=== PATIENT | female | born 1980 | race Caucasian/White ===

== ENCOUNTER → 2019-11-23 11:10 | Outpatient (BNVA) | payer SELFPAY | PROVIDERS: Family Provider Nurse Practitioner Family; PCP Nurse Practitioner Family; Visit Provider Registered Nurse | DX: E11.9 Type 2 diabetes mellitus without complications (principal); I10 Essential (primary) hypertension | CPT/HCPCS: 80053; 80061; 83036 ==

== ENCOUNTER 2021-05-15 15:30 | Outpatient (CLI) | payer SELFPAY ==
--- NOTE | 2021-05-15 15:30 | CT_ITS ---
WS: [id number] CT ABDOMEN PELVIS TECHNIQUE: Noncontrast CT of the abdomen and pelvis with coronal and sagittal reformatted images. CLINICAL INFORMATION: K85.90 - Acute pancreatitis without necrosis or infection... COMPARISON: None. DLP: 1746.[address] scans at [facility] use at least one of these dose optimization techniques: automated e xposure control; mA and/or kV adjustment per patient size (includes targeted exams where dose is matc hed to clinical indication); or iterative reconstruction. FINDINGS: Normal noncontrast liver. Small right hepatic cyst. Normal gallbladder. Lung bases are well aerated. Normal noncontrast spleen. Normal GE junction. Noncontrast pancreas is normal. Adrenal glands are nor mal.No hydronephrosis in either kidney. No obstructing renal or ureteral calculi. Normal caliber abdo makenna aorta. Mild aortic calcification. Normal sigmoid colon. No evidence of small large bowel obstruction. Prior appendectomy. No periaortic or retroperitoneal lymphadenopathy. No pelvic lymphadenopathy. Tiny fat-containing umbilical hernia. CT/CT abdomen pelvis wo con [id number] IMPRESSION: 1. No obstructing renal or ureteral calculi. No hydronephrosis in either kidne y. 2. No free fluid in the abdomen or pelvis. 3. Noncontrast pancreas appears normal. No evidence of acute pancreatitis 4. Tiny right hepatic cyst. 5. No evidence of small or large bowel obstruction. 6. Prior appendectomy. 7. Small fat-containing umbilical hernia. 8. No other significant findings.
== END 2021-05-15 15:31 | disposition home or self-care (01) ==
LOC: RAD 15:34
PROVIDERS: PCP Registered Nurse; Visit Provider Registered Nurse
DX: K85.90 Acute pancreatitis without necrosis or infection, unspecified (principal); K42.9 Umbilical hernia without obstruction or gangrene; Q42.8 Congenital absence, atresia and stenosis of other parts of large intestine; K76.89 Other specified diseases of liver; E11.9 Type 2 diabetes mellitus without complications
CPT/HCPCS: 74176; 80053; 83036

== ENCOUNTER → 2022-08-02 11:24 | Outpatient (BNVA) | payer SELFPAY | PROVIDERS: PCP Registered Nurse; Visit Provider Registered Nurse | DX: E11.9 Type 2 diabetes mellitus without complications (principal); I10 Essential (primary) hypertension; J32.9 Chronic sinusitis, unspecified | CPT/HCPCS: 80053; 83036 ==

== ENCOUNTER → 2023-01-31 09:00 | Outpatient (BNVA) | payer SELFPAY | PROVIDERS: PCP Registered Nurse; Visit Provider Registered Nurse | DX: K85.90 Acute pancreatitis without necrosis or infection, unspecified (principal) | CPT/HCPCS: 83036 ==

== ENCOUNTER → 2023-06-26 11:01 | Outpatient (BNVA) | payer SELFPAY | PROVIDERS: PCP Registered Nurse; Visit Provider Registered Nurse | DX: E11.9 Type 2 diabetes mellitus without complications (principal) | CPT/HCPCS: 80053; 83036; 85025 ==

== ENCOUNTER → 2023-12-03 08:53 | Outpatient (BNVA) | payer SELFPAY | PROVIDERS: PCP Registered Nurse; Visit Provider Registered Nurse | DX: E11.9 Type 2 diabetes mellitus without complications (principal); K85.90 Acute pancreatitis without necrosis or infection, unspecified; I10 Essential (primary) hypertension; F41.1 Generalized anxiety disorder; F43.0 Acute stress reaction | CPT/HCPCS: 80053; 82306; 82607; 82977; 83036; 83090; 83525; 83540; 83615; 83735; 84100; 84439; 84443; 84481; 84482; 84550; 84630; 85025; 86141; 86376 ==

== ENCOUNTER → 2024-05-12 09:56 | Outpatient (BNVA) | payer OTHER, SELFPAY | PROVIDERS: PCP Registered Nurse; Visit Provider Registered Nurse | DX: E11.9 Type 2 diabetes mellitus without complications (principal); R51.9 Headache, unspecified; H47.10 Unspecified papilledema | CPT/HCPCS: 80053; 83036; 85025; 86140 ==

== ENCOUNTER 2024-05-19 07:57 | Outpatient (CLI) | payer OTHER, SELFPAY ==
--- NOTE | 2024-05-19 08:00 | MR_ITS ---
WS: [id number] MRI BRAIN WITHOUT CONTRAST HISTORY: H47.10 - Unspecified papilledema COMPARISON: None available. TECHNIQUE: Diffusion imaging, multiplanar T1, T2 and FLAIR imaging obtained. No evidence for acute infarct or hemorrhage. Nice-white matter differentiation is normal. No significant cerebral atrophy. No prior infarct. No significant small vessel disease. Ventricles and extra-axial spaces are normal. No inferior displacement of cerebellar tonsils. The sella turcica and pituitary gland are unremarkabl e. Dural venous sinuses and [place] of [place] demonstrate no abnormality on this unenhanced studies. Paranasal sinuses: Small air-fluid levels in the maxillary sinuses with mucoperiosteal thickening. Mastoid air cells: Normal. Calvarium and scalp: Intact. Symmetric appearance of the orbits and globes. No significant asymmetry of the optic nerves or sheath . No signal changes along the optic nerves or sheath. MR/MR head wo con* [id number] IMPRESSION: 1. Unremarkable noncontrast MRI brain. 2. No ischemia or prior infarcts. 3. Acute maxillary sinusitis. 4. By MRI brain the optic nerves and optic nerve sheaths appear symmetric. For more extensive evaluation of the optic nerves consider MRI orbit evaluation wi th and without contrast.
== END 2024-05-19 07:58 | disposition home or self-care (01) ==
LOC: RAD 07:58
PROVIDERS: PCP Registered Nurse; Visit Provider Registered Nurse
DX: H47.10 Unspecified papilledema (principal); R51.9 Headache, unspecified; J01.00 Acute maxillary sinusitis, unspecified
CPT/HCPCS: 70551

== ENCOUNTER 2024-06-03 10:57 | Day surgery (SDC) | payer OTHER, SELFPAY ==
[2024-06-03 11:07] VITALS: BP 165/97; PULSE 91; RESP 20; TEMP 36.8; O2SAT 98; BMI 29.8
[2024-06-03] MEDS: sodium chloride 0.9% 500 ML 15 ML IV (11:14)
[2024-06-03 11:20] LABS: Glucose Point of Care 168 mg/dL (70-110)
--- NOTE | 2024-06-03 12:22 | ANES.PREANE2 ---
Pre-Anesthetic Assessment Height/Weight: Height 1.68 m Weight 83.915 kg Temp Pulse Resp BP Pulse Ox O2 Del Method 98.3 F 91 20 H 165/97 98 Room Air 06/03/24 11:07 06/03/24 11:07 06/03/24 11:07 06/03/24 11:07 06/03/24 11:07 06/03/24 11:07 Preop Diagnosis: abdominal pain, GI bleed. Operation Date: 06/03/24 12:00 Proposed Procedures p EGD 64835, 59178, G0105, K92.2, R10.9(Not Applicable) - Santiago Lucero DO s Colonoscopy(Not Applicable) - Santiago Lucero DO Familial anesthetic complications: none Was Beta Jessica taken within 24 hours: N/A Last intake: Intake Last Liquid Date 06/02/24 Last Liquid Time 23:30 Last Solid Date 06/01/24 Last Solid Time 23:59 Social Alcohol (1-2 drinks per week) and Tobacco (vape hasnt in 5 days per patient) cannabis use prn for sleep 48 hours since last use. Exam alert, oriented x 3, clear to auscultation bilaterally and regular rate & rhythm Airway Submandibular: within normal limits Cervical ROM: within normal limits Mallampati: Class II Dentition: full Pulmonary Asthma CV/HEM Hypertension None reported Hepatic None reported GI Gastroesophageal Reflux Disease GI bleed + occult Metabolic Diabetes Mellitus and Hyperlipidemia A1C 7.1 [facility] None reported Neuropsych Anxiety Anesthetic Plan ASA status: 3 Anesthesia: MAC Medications/Allergies Home Medications Medication Instructions Recorded Confirmed Last Taken Type albuterol sulfate 90 mcg/actuation 1 inh inhalation Q6H 30 days #8.5 10/24/22 06/01/24 06/02/24 Rx aerosol inhaler (Ventolin HFA) grams dapagliflozin propanediol 10 mg 10 mg PO DAILY 90 days #90 tabs 11/29/23 06/01/24 06/02/24 Rx tablet (Farxiga) lorazepam 0.5 mg tablet 0.25 - 0.5 mg (0.5 - 1 x 0.5 mg) 11/29/23 06/01/24 06/02/24 Rx PO DAILY PRN anxiety 30 days #14 tabs losartan 25 mg tablet See Rx Instructions .Route 02/24/24 06/01/24 06/02/24 Rx .COMPLEX #180 tabs polyethylene glycol 3350 17 17 g PO DAILY 30 days #238 grams 05/25/24 06/01/24 06/02/24 Rx gram/dose oral powder (Miralax) Allergies Allergy/AdvReac Type Severity Reaction Status Date / Time codeine Allergy Mild unknown Verified 05/29/24 13:07 Current Medications Generic Name Dose Route Start Last Admin Trade Name Freq PRN Reason Stop Dose Admin Sodium Chloride 500 mls @ 15 mls/hr 06/03/24 11:01 06/03/24 11:14 Sodium Chloride 0.9% IV 06/04/24 11:00 15 mls/hr .Q24H PRN Administration COLONOSCOPY FLUIDS PFSH Anesthesia Medical History (Updated 06/01/24 @ 12:51 by INOCENCIA Lagunas) Diabetes mellitus Hypertension Surgical History (Updated 06/01/24 @ 15:11 by INOCENCIA Lagunas) History of hysterectomy 2014 @ [facility] Social History Smoking and tobacco/nicotine status: current every day tobacco/nicotine user e-cigarettes Alcohol intake: never Substance/Drug Use: never Adopted: No Caregiver/support person: No Lives independently: No Household members: spouse Marital status: Sexually active: Yes Do you think of yourself as: Straight/Heterosexual Current gender identity: Female Data Anesthesia Cardiac Studies: No Data to Display
--- NOTE | 2024-06-03 12:22 | W.PM.OPSUD ---
Surgery/Procedure H&P Update DATE OF PROCEDURE: June 03, 2024 DATE H&P PERFORMED: 05/25/24 H&P UPDATE INFORMATION: I have reviewed H&P completed within last 30 days, I have examined patient prior to procedure and No changes to prior documentation PLANNED PROCEDURE: Operation Date: 06/03/24 12:00 Proposed Procedures p EGD 03242, 85614, G0105, K92.2, R10.9(Not Applicable) - DO marques Hargrove Colonoscopy(Not Applicable) - Santiago Lucero DO
[2024-06-03] MEDS: EPINEPHrine 1 mg/mL INJ XX (12:40)
[2024-06-03 12:56] VITALS: BP 93/64; PULSE 76; RESP 14; TEMP 36.1; O2SAT 95
[2024-06-03 13:11] VITALS: BP 137/88; PULSE 81; RESP 16; O2SAT 99
[2024-06-03 14:00] VITALS: BP 129/88; PULSE 61; RESP 18; O2SAT 99
--- NOTE | 2024-06-03 14:00 | ANE.PACU2 ---
Inpatient post-anesthesia follow up: Airway intact: Yes Vital signs: Temperature 97.0 F Pulse Rate 61 Respiratory Rate 18 Blood Pressure 129/88 Pulse Oximetry 99 Oxygen Delivery Me thod Room Air Oxygen Flow Rate Fraction of Inspir ed Oxygen Hydration adequate: Yes Nausea and vomiting: No Pain level: 1 Mental status: Baseline
--- NOTE | 2024-06-03 14:13 | PC.NURSE ---
1352 - spoke with CASSANDRA Paula re: Patient c/o feeling bad - states I am sleepy and my belly hurts. V/S stable - HR 61, RR 18, BP 129/88, O2 Sat 99%. Nisa in to speak with patient.
--- NOTE | 2024-06-03 14:15 | PC.NURSE ---
1402 - Patient states she is ready to go home. Patient taken out via w/c accompanied by nurse and . All personal belongings sent with patient.
== END 2024-06-03 14:04 | disposition home or self-care (01) ==
PROVIDERS: PCP Registered Nurse; Visit Provider Surgery
PROC: 0DJ08ZZ Inspection of Upper Intestinal Tract, Via Natural or Artificial Opening Endoscopic (ICD-10-PCS; principal; 2024-06-03 12:00)
PROC: 0DJD8ZZ Inspection of Lower Intestinal Tract, Via Natural or Artificial Opening Endoscopic (ICD-10-PCS; CPT 45378; 2024-06-03 12:00)
DX: Z12.11 Encounter for screening for malignant neoplasm of colon (principal); K31.7 Polyp of stomach and duodenum; K29.50 Unspecified chronic gastritis without bleeding; B96.81 Helicobacter pylori [H. pylori] as the cause of diseases classified elsewhere; E11.9 Type 2 diabetes mellitus without complications; I10 Essential (primary) hypertension; F17.210 Nicotine dependence, cigarettes, uncomplicated; Z88.5 Allergy status to narcotic agent; Z79.899 Other long term (current) drug therapy
CPT/HCPCS: 36416; 43239; 43251; 45378; 82962; 88305; 88342; J0171; J2704; J7040

== ENCOUNTER → 2024-07-10 08:23 | Outpatient (BNVA) | payer OTHER, SELFPAY | PROVIDERS: PCP Registered Nurse; Visit Provider Surgery | DX: K29.70 Gastritis, unspecified, without bleeding (principal); B96.81 Helicobacter pylori [H. pylori] as the cause of diseases classified elsewhere; R10.9 Unspecified abdominal pain | CPT/HCPCS: 86003; 86008; 87338 ==

== ENCOUNTER 2024-08-12 08:38 | Outpatient (CLI) | payer OTHER, SELFPAY ==
--- NOTE | 2024-08-12 09:00 | FL_ITS ---
WS: [id number] Exam: FL barium swallow modifd [id number] Date/Time of Exam: 08/12/2024 9:00 AM Reason For Exam: Fluoroscopy time: 2min [id number] minutes # of spot films: 0 Modified barium swallow test performed in conjunction with the speech therapy service. Oropharyngeal phase of swallowing was normal. The patient tolerated all consistencies of barium mixture foodstuffs without penetration or aspiration. The patient swallowed a barium pill without difficulty. The tablet was momentarily retained in the lower esophagus but was propelled into the stomach with a single swallow of thin liquid barium. FL/FL barium swallow modifd [id number] IMPRESSION: 1. No aspiration or penetration identified. A separate report of findings and recommendations will follow from the speech t herapy service.
== END 2024-08-12 08:39 | disposition home or self-care (01) ==
LOC: RAD 08:41
PROVIDERS: PCP Registered Nurse; Visit Provider Surgery
DX: R13.10 Dysphagia, unspecified (principal)
CPT/HCPCS: 74230; 92611

== ENCOUNTER → 2024-09-11 09:27 | Outpatient (BNVA) | payer OTHER, SELFPAY | PROVIDERS: PCP Registered Nurse; Visit Provider Registered Nurse | DX: E11.9 Type 2 diabetes mellitus without complications (principal) | CPT/HCPCS: 83036 ==

== ENCOUNTER → 2024-09-16 09:35 | Outpatient (BNVA) | payer OTHER, SELFPAY | PROVIDERS: PCP Registered Nurse; Visit Provider Registered Nurse | DX: E11.9 Type 2 diabetes mellitus without complications (principal); K92.2 Gastrointestinal hemorrhage, unspecified | CPT/HCPCS: 85025 ==

== ENCOUNTER → 2025-01-25 11:27 | Outpatient (BNVA) | payer OTHER, SELFPAY | PROVIDERS: PCP Registered Nurse; Visit Provider Registered Nurse | DX: E11.9 Type 2 diabetes mellitus without complications (principal) | CPT/HCPCS: 80053; 80061; 81000; 83036 ==